=== PATIENT | female | born 1935 | race Two or more races ===

== ENCOUNTER 2016-08-03 10:58 | Outpatient (CLI) | payer MEDICARE, BC | END 2016-08-03 23:59 | disposition home or self-care (01) | LOC: RAD 10:58 | PROVIDERS: ATTEND Family Medicine | DX: R22.42 Localized swelling, mass and lump, left lower limb (principal); M85.872 Other specified disorders of bone density and structure, left ankle and foot; R60.1 Generalized edema | CPT/HCPCS: 73630-TC ==